=== PATIENT | male | born 1995 | race Two or more races ===

== ENCOUNTER 2018-04-19 12:59 | Emergency (ER) | payer BC, MEDICAID ==
[~2018-04-19] VITALS: Ht 182.9 cm; Wt 177.3 kg
[~2018-04-19 12:59] MED LIST: CYCL-120 PO; NAPR-56 PO; NO HOME MEDS
[2018-04-19 13:02] VITALS: BP 187/108
[2018-04-19] MEDS ORDERED: LOSA25TA96 PO (13:44)
== END 2018-04-19 13:50 | disposition home or self-care (01) ==
LOC: ER 13:00
DX: S61.213A Laceration without foreign body of left middle finger without damage to nail, initial encounter (principal); I10 Essential (primary) hypertension; W23.0XXA Caught, crushed, jammed, or pinched between moving objects, initial encounter; Y93.89 Activity, other specified; Y92.89 Other specified places as the place of occurrence of the external cause; Y99.9 Unspecified external cause status
CPT/HCPCS: 12001; 73140; 99283